=== PATIENT | male | born 1985 | race Caucasian/White ===

== ENCOUNTER 2020-06-11 18:58 | Emergency (ER) | payer BC ==
[~2020-06-11] VITALS: Ht 175.3 cm; Wt 61.2 kg
[2020-06-11 20:00] LABS: URINE BILIRUBIN NEGATIVE (Negative); URINE BLOOD NEGATIVE (Negative); URINE COLOR YELLOW; URINE GLUCOSE-RANDOM NEGATIVE (Negative); URINE KETONES NEGATIVE (Negative); URINE LEUKOCYTES NEGATIVE (Negative); URINE NITRITE NEGATIVE (Negative); URINE PROTEIN 2+ (Negative); URINE SPECIFIC GRAVITY >= 1.030 (1.005-1.030); URINE UROBILINOGEN 0.2 E.U./dl (0.2-1.0)
[2020-06-11 20:04] LABS: HEMATOCRIT 44.4 % (42.0-52.0); HEMOGLOBIN 15.4 gm/dL (14.0-18.0); MCH 32.1 pg (26.0-34.0); MCHC 34.8 g/dL (28.0-37.0); MCV 92.2 fL (80.0-100.0); MPV 7.8 fl. (7.2-11.1); RBC 4.82 mil/uL (4.50-6.00); RDW-CV 13.1 % (10.5-14.5); WBC 7.6 thou/uL (4.0-11.0)
[2020-06-11 20:05] LABS: URINE CLARITY HAZY
[2020-06-11 20:08] LABS: AMP/METHAMP POSITIVE (Negative); BARBITURATES Negative (Negative); BENZODIAZEPINES POSITIVE (Negative); COCAINE Negative (Negative); METHADONE Negative (Negative); OPIATES Negative (Negative); PCP Negative (Negative); THC Negative (Negative)
[2020-06-11 20:20] LABS: HYALINE CASTS 0-3 Few /LPF (None Seen); MUCUS 4-6 Moderate strn/LPF (None Seen); SQUAMOUS 4-10 Moderate /LPF (0-3)
[2020-06-11 20:21] LABS: CALCIUM OXALATE 0-3 Few /LPF (None Seen)
[2020-06-11 20:22] LABS: BACTERIA None Seen /HPF (None Seen); URINE RBC None Seen /HPF (0-2); URINE WBC None Seen /HPF (0-5)
[2020-06-11 20:37] LABS: ACETAMINOPHEN < 2 ug/mL (10-30); ALCOHOL < 10 mg/dL (<10); SALICYLATE < 2.8 mg/dL (2.8-20.0)
[2020-06-11 20:42] LABS: CALCIUM 8.8 mg/dL (8.5-10.1); CREATININE 0.9 mg/dL (0.6-1.3); POTASSIUM 4.2 mmol/L (3.5-5.1)
[2020-06-11 20:47] LABS: ALBUMIN 3.8 g/dL (3.4-5.0); TOTAL BILIRUBIN 0.6 mg/dL (<0.1-1.0); TOTAL PROTEIN 7.1 g/dL (6.4-8.2)
[2020-06-11] MEDS ORDERED: SEROQUEL300 MG PO (21:35)
[2020-06-11] MEDS ORDERED: IRON325 M1 PO (21:35)
[2020-06-11] MEDS ORDERED: VALIUM5 MG PO (21:35)
[2020-06-11] MEDS ORDERED: PROTONIX40 M4 PO (21:35)
[2020-06-11] MEDS ORDERED: ADZENYS XR-OD15.7 MG PO (21:39)
[2020-06-11] MEDS ORDERED: BUTRANS1 EACH INTRADERM (21:39)
[2020-06-11] MEDS ORDERED: ALLEGRA ALLERGY60 MG PO (21:39)
[2020-06-11] MEDS ORDERED: VITAMIN D (21:40)
[2020-06-11 23:14] VITALS: BP 115/73
== END 2020-06-11 23:14 | disposition home or self-care (01) ==
LOC: M.ERS 18:58
PROVIDERS: Personal Emergency Response Attendant
DX: F32.9 Major depressive disorder, single episode, unspecified (principal); Z88.2 Allergy status to sulfonamides; Z88.8 Allergy status to other drugs, medicaments and biological substances

== ENCOUNTER 2020-07-18 13:07 | Emergency (ER) | payer BC ==
[~2020-07-18] VITALS: Ht 175.3 cm; Wt 59.0 kg
--- NOTE | ~2020-07-18 | EMS ---
[facility] [address] [place] [address] EMS Patient Care Report Name: DONNIE CASTRO Room: [facility]#: [id number] Admission: 07/18/20 Attend Phys: Discharge: Date of : 85 Report #: [id number] THIS REPORT FOR: //name// Report Transmitted: 07/18/2020 17:15 EMS Care Summary [facility] [place] Incident [id number] @ 07/18/2020 12:35 Incident Location [address] [address] Patient DONNIE CASTRO Male, 34 Years 1985 Patient Address [address] [place] [address] Patient History Anxiety disorder, unspecified, Patient Allergies No known allergies, Patient Medications Oxygen, Chief Complaint Psych/Behavioral Crisis Disposition Transported No Lights/[place] Dispatch Reason Psychiatric Problem/Abnormal Behavior/Suicide Attempt Transported To [facility] Narrative Dispatched to address noted for an unknown psychiatric. [facility] en route at time noted. Arrived and found the patient walking out of the psychiatric office with staff. Patient had an oxygen concentrator on at 1 L/min. 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 Patient is new to the area. Patient stated to the staff there that he has last the will to live and did not want to be around. Patient stated he wanted to be transported to [facility] for care. patient is trying to get his behavioral issues taken care of by a doctor but cannot get an appointment until September. Patient was walked to ambulance and then buckled into stretcher by partner while I gathered information from staff and her phone number for the hospital to call. Once in ambulance, vitals where taken at time noted. Patient seemed to be frustrated but was calm and cooperative. While en route, vital where taken at time noted. No major events noted. Radio report given at time noted. Arrived and took patient to room. Patient was moved to bed and RN was given verbal report. RN signed for patient and patient signed for self. END REPORT EMT-P Austin Vallejo Initial Vitals @12:50SpO2: 100, @12:51SpO2: 99, @12:53SpO2: 100, @12:53SpO2: 100, @12:58SpO2: 99, @13:01SpO2: 99, @12:53P: 77,R: 18,BP: 166/103, @13:01P: 80,R: 18,BP: 157/105, @12:53GCS: 15, @13:01GCS: 15, @12:43 Assessments @12:43MENTAL:SKIN:HEENT:LUNG SOUNDS:ABDOMEN:PELVIS//GI:EXTREMITIES:PULSE:NEURO: Impression Mental disorder Procedures @12:43Other - Medication - 1.000 Liters per Minute (l/min [fluid]) - Nasal CannulaResponse: Unchanged Timeline 12:34,Call Received 12:34,Dispatch Notified 12:34,Psap Call 12:35,Dispatched 12:35,En Route 12:41,On Scene 12:43,[place] [address] EMS Patient Care Report Name: DONNIE CASTRO Room: [facility]#: [id number] Admission: 07/18/20 Attend Phys: Discharge: Date of : 85 Report #: [id number] 12:43,Other - Medication - 1.000 Liters per Minute (l/min [fluid]) - Nasal Cannula,Response: Unchanged 12:43,BP: / M,PULSE: ,RR: R,SPO2: Ox,ETCO2: ,BG: ,PAIN: ,GCS: , 12:50,BP: / M,PULSE: ,RR: R,SPO2: 100 Ox,ETCO2: ,BG: ,PAIN: ,GCS: , 12:51,BP: / M,PULSE: ,RR: R,SPO2: 99 Ox,ETCO2: ,BG: ,PAIN: ,GCS: , 12:51,Depart Scene 12:53,BP: / M,PULSE: ,RR: R,SPO2: 100 Ox,ETCO2: ,BG: ,PAIN: ,GCS: , 12:53,BP: / M,PULSE: ,RR: R,SPO2: 100 Ox,ETCO2: ,BG: ,PAIN: ,GCS: , 12:53,BP: 166/103 M,PULSE: 77,RR: 18 R,SPO2: Ox,ETCO2: ,BG: ,PAIN: ,GCS: , 12:53,BP: / M,PULSE: ,RR: R,SPO2: Ox,ETCO2: ,BG: ,PAIN: ,GCS: 15, 12:58,BP: / M,PULSE: ,RR: R,SPO2: 99 Ox,ETCO2: ,BG: ,PAIN: ,GCS: , 13:01,BP: / M,PULSE: ,RR: R,SPO2: 99 Ox,ETCO2: ,BG: ,PAIN: ,GCS: , 13:01,BP: 157/105 M,PULSE: 80,RR: 18 R,SPO2: Ox,ETCO2: ,BG: ,PAIN: ,GCS: , 13:01,BP: / M,PULSE: ,RR: R,SPO2: Ox,ETCO2: ,BG: ,PAIN: ,GCS: 15, 13:04,At Destination 13:15,Call Closed Disclaimer v1.1 Copyright 2020 [employer] This EMS Care Summary contains data elements from the applicable legal record (which may be displayed differently). It is designed to provide pertinent information for the following purposes: continuity of care, clinical quality, and state data reporting. The complete legal record is available to ED staff and administrators of the receiving hospital in [employer]'s Patient Tracker. All data is provided "as is."
[~2020-07-18 13:07] MED LIST: ADZENYS XR-OD15.7 MG PO; ALLEGRA ALLERGY60 MG PO; BUTRANS1 EACH INTRADERM; IRON325 M1 PO; PROTONIX40 M4 PO; SEROQUEL300 MG PO; VALIUM5 MG PO; VITAMIN D
[2020-07-18] MEDS ORDERED: [UNRECOGNIZED DRUG - OTHER] PO (13:22)
[2020-07-18] MEDS ORDERED: METHYLFOLATE (13:30)
[2020-07-18] MEDS ORDERED: PROTONIX40 M3 PO (13:31)
[2020-07-18] MEDS ORDERED: BROVANA15 MCG/2 M INH (13:31)
[2020-07-18] MEDS ORDERED: DEXEDRINE15 MG PO (13:31)
[2020-07-18 13:38] LABS: URINE BILIRUBIN NEGATIVE (Negative); URINE BLOOD NEGATIVE (Negative); URINE CLARITY CLEAR; URINE COLOR YELLOW; URINE GLUCOSE-RANDOM NEGATIVE (Negative); URINE KETONES NEGATIVE (Negative); URINE LEUKOCYTES-REFLEX NEGATIVE (Negative); URINE NITRITE-REFLEX NEGATIVE (Negative); URINE PROTEIN NEGATIVE (Negative); URINE UROBILINOGEN 0.2 E.U./dl (0.2-1.0)
[2020-07-18 13:46] LABS: AMP/METHAMP Negative (Negative); BARBITURATES Negative (Negative); BENZODIAZEPINES POSITIVE (Negative); COCAINE Negative (Negative); METHADONE Negative (Negative); OPIATES Negative (Negative); PCP Negative (Negative); THC Negative (Negative)
[2020-07-18 14:01] LABS: ABSOLUTE BASOPHILS 0.1 thou/uL (0.0-0.2); ABSOLUTE EOSINOPHILS 0.2 thou/uL (0.0-0.7); ABSOLUTE LYMPHOCYTES 1.2 thou/uL (0.8-5.3); ABSOLUTE MONOCYTES 0.5 thou/uL (0.0-1.2); ABSOLUTE NEUTROPHILS 4.3 thou/uL (1.6-8.1); BASOPHILS 0.9 %; EOSINOPHILS 2.6 %; HEMATOCRIT 47.6 % (42.0-52.0); HEMOGLOBIN 16.4 gm/dL (14.0-18.0); LYMPHOCYTES 18.9 %; MCH 31.8 pg (26.0-34.0); MCHC 34.5 g/dL (28.0-37.0); MCV 92.3 fL (80.0-100.0); MONOCYTES 8.8 %; MPV 7.5 fl. (7.2-11.1); NUCLEATED RBCS 0 /100WBC; PLATELET COUNT* 252 thou/uL (150-400); POLYS 68.8 %; RBC 5.15 mil/uL (4.50-6.00); RDW-CV 12.9 % (10.5-14.5); WBC 6.2 thou/uL (4.0-11.0)
[2020-07-18 14:10] LABS: CALCIUM 9.3 mg/dL (8.5-10.1); CREATININE 0.8 mg/dL (0.6-1.3); POTASSIUM 3.9 mmol/L (3.5-5.1)
[2020-07-18 14:15] LABS: ACETAMINOPHEN < 2 ug/mL (10-30); ALBUMIN 3.9 g/dL (3.4-5.0); ALCOHOL < 10 mg/dL (<10); SALICYLATE < 2.8 mg/dL (2.8-20.0); TOTAL BILIRUBIN 0.7 mg/dL (<0.1-1.0); TOTAL PROTEIN 7.4 g/dL (6.4-8.2)
[2020-07-18 23:52] VITALS: BP 144/94
== END 2020-07-18 23:53 | disposition home or self-care (01) ==
LOC: M.ERS 13:07
PROVIDERS: Emergency Medicine Emergency Medical Services
DX: R45.851 Suicidal ideations (principal); J45.909 Unspecified asthma, uncomplicated; G43.909 Migraine, unspecified, not intractable, without status migrainosus; K21.9 Gastro-esophageal reflux disease without esophagitis; G47.30 Sleep apnea, unspecified; F90.9 Attention-deficit hyperactivity disorder, unspecified type; F32.9 Major depressive disorder, single episode, unspecified; M41.9 Scoliosis, unspecified; Z88.2 Allergy status to sulfonamides; Z88.8 Allergy status to other drugs, medicaments and biological substances; Z79.899 Other long term (current) drug therapy

== ENCOUNTER 2021-02-07 18:51 | Emergency (ER) | payer BC ==
[~2021-02-07] VITALS: Ht 175.3 cm; Wt 59.9 kg
[~2021-02-07 18:51] MED LIST changes: +BROVANA15 MCG/2 M INH; +DEXEDRINE15 MG PO; +METHYLFOLATE; +PROTONIX40 M3 PO; +[UNRECOGNIZED DRUG - OTHER] PO
[2021-02-07 19:40] LABS: ABSOLUTE BASOPHILS 0.1 thou/uL (0.0-0.2); ABSOLUTE EOSINOPHILS 0.1 thou/uL (0.0-0.7); ABSOLUTE LYMPHOCYTES 1.6 thou/uL (0.8-5.3); ABSOLUTE MONOCYTES 0.6 thou/uL (0.0-1.2); ABSOLUTE NEUTROPHILS 2.6 thou/uL (1.6-8.1); BASOPHILS 1.3 %; EOSINOPHILS 2.8 %; HEMATOCRIT 42.8 % (42.0-52.0); HEMOGLOBIN 15.1 gm/dL (14.0-18.0); LYMPHOCYTES 31.9 %; MCH 32.1 pg (26.0-34.0); MCHC 35.2 g/dL (28.0-37.0); MCV 91.2 fL (80.0-100.0); MONOCYTES 11.5 %; MPV 7.7 fl. (7.2-11.1); NUCLEATED RBCS 0 /100WBC; PLATELET COUNT* 235 thou/uL (150-400); POLYS 52.5 %; RBC 4.69 mil/uL (4.50-6.00); RDW-CV 12.7 % (10.5-14.5); WBC 4.9 thou/uL (4.0-11.0)
[2021-02-07 19:42] LABS: CALCIUM 9.3 mg/dL (8.5-10.1); CREATININE 0.9 mg/dL (0.6-1.3); MAGNESIUM 1.9 mg/dL (1.8-2.4); POTASSIUM 3.9 mmol/L (3.5-5.1)
[2021-02-07 20:14] VITALS: BP 127/94
--- NOTE | 2021-02-08 10:57 | EKG ---
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[place] : 1985 Requested By: Jenelle Edwards Order Number: [id number] MD: Sachin Hackett Measurements Intervals [place] Rate: 83 P: 76 [place]: 111 QRS: 75 QRSD: 91 T: 70 QT: 358 QTc: 421 Interpretive Statements Sinus rhythm Borderline short [place] interval Probable left atrial enlargement Left ventricular hypertrophy ST elev, probable normal early repol pattern No previous ECG available for comparison Electronically Signed On 02-08-2021 10:57:33 CDT by Sachin Hackett [email or web address] <ELECTRONICALLY SIGNED> By: Sachin Hackett MD, [facility] 02/08/21 1057 190 1901 Sachin Hackett MD, [facility] /EPI
== END 2021-02-07 20:15 | disposition home or self-care (01) ==
LOC: M.ERS 18:51
PROVIDERS: Emergency Medicine
DX: F41.9 Anxiety disorder, unspecified (principal); J45.909 Unspecified asthma, uncomplicated; G43.909 Migraine, unspecified, not intractable, without status migrainosus; F90.9 Attention-deficit hyperactivity disorder, unspecified type; K21.9 Gastro-esophageal reflux disease without esophagitis; F32.9 Major depressive disorder, single episode, unspecified; Z79.899 Other long term (current) drug therapy; Z88.2 Allergy status to sulfonamides; Z88.8 Allergy status to other drugs, medicaments and biological substances; Z88.1 Allergy status to other antibiotic agents

== ENCOUNTER 2021-03-19 17:43 | Emergency (ER) | payer BC ==
[~2021-03-19] VITALS: Ht 175.3 cm; Wt 60.3 kg
[2021-03-19 18:52] LABS: ABSOLUTE BASOPHILS 0.1 thou/uL (0.0-0.2); ABSOLUTE EOSINOPHILS 0.1 thou/uL (0.0-0.7); ABSOLUTE MONOCYTES 0.7 thou/uL (0.0-1.2); ABSOLUTE NEUTROPHILS 9.7 thou/uL (1.6-8.1); BASOPHILS 0.6 %; HEMATOCRIT 46.3 % (42.0-52.0); HEMOGLOBIN 15.9 gm/dL (14.0-18.0); LYMPHOCYTES 8.4 %; MCH 31.6 pg (26.0-34.0); MCHC 34.2 g/dL (28.0-37.0); MCV 92.4 fL (80.0-100.0); MONOCYTES 6.4 %; MPV 8.1 fl. (7.2-11.1); NUCLEATED RBCS 0 /100WBC; PLATELET COUNT* 233 thou/uL (150-400); POLYS 83.6 %; RBC 5.01 mil/uL (4.50-6.00); RDW-CV 12.6 % (10.5-14.5); WBC 11.6 thou/uL (4.0-11.0)
[2021-03-19 19:10] LABS: CALCIUM 8.6 mg/dL (8.5-10.1); CREATININE 0.9 mg/dL (0.6-1.3); POTASSIUM 3.9 mmol/L (3.5-5.1)
[2021-03-19 19:19] LABS: TOTAL BILIRUBIN 0.8 mg/dL (<0.1-1.0); TOTAL PROTEIN 7.6 g/dL (6.4-8.2)
[2021-03-19 19:31] LABS: INFLUENZA A ANTIGEN Negative (Negative); INFLUENZA B ANTIGEN Negative (Negative)
[2021-03-19 20:26] LABS: BE -0.4 mmol/L (-2 to +3); PCO2 VENOUS 52.1 mmHg (41.0-51.0); PO2 VENOUS 72.8 mmHg (35.0-45.0)
[2021-03-19] MEDS ORDERED: ALBUTEROL2.5 MG/31 INH (21:59)
[2021-03-19] MEDS ORDERED: VENTOLIN HFA 1818 GM INH (21:59)
[2021-03-19] MEDS ORDERED: DOXYCYCLINE 10100 MG PO (21:59)
[2021-03-19 22:55] VITALS: BP 125/75
--- NOTE | 2021-03-20 06:18 | EKG ---
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[place] : 1985 Requested By: Michelle Samaniego Order Number: [id number] MD: Nathan Mullins Measurements Intervals [place] Rate: 83 P: 57 [place]: 120 QRS: 70 QRSD: 98 T: 71 QT: 384 QTc: 452 Interpretive Statements Sinus rhythm Incomplete right bundle branch block Left ventricular hypertrophy, by voltage ST elev, probable normal early repol pattern Compared to ECG 02/07/2021 19:01:36 Incomplete right bundle branch block now present Electronically Signed On 03-20-2021 6:18:02 CDT by Nathan Mullins [email or web address] <ELECTRONICALLY SIGNED> By: Nathan Mullins MD, FACC 03/20/21 0618 42 42 Nathan Mullins MD, FACC /EPI
== END 2021-03-19 22:55 | disposition home or self-care (01) ==
LOC: M.ERS 17:43
PROVIDERS: Nurse Practitioner Family
DX: J18.9 Pneumonia, unspecified organism (principal); Z20.822 Contact with and (suspected) exposure to COVID-19; J45.909 Unspecified asthma, uncomplicated; G43.909 Migraine, unspecified, not intractable, without status migrainosus; F90.9 Attention-deficit hyperactivity disorder, unspecified type; K21.9 Gastro-esophageal reflux disease without esophagitis; F32.9 Major depressive disorder, single episode, unspecified; F41.9 Anxiety disorder, unspecified; Z79.899 Other long term (current) drug therapy; Z88.2 Allergy status to sulfonamides; Z88.6 Allergy status to analgesic agent

== ENCOUNTER → 2021-07-22 | Emergency (ER) | payer OTHER ==
[~2021-07-22] VITALS: Ht 172.7 cm; Wt 60.3 kg
[~2021-07-22] MED LIST changes: +ALBUTEROL2.5 MG/31 INH; +DOXYCYCLINE 10100 MG PO; +VALIUM10 MG PO; +VENTOLIN HFA 1818 GM INH
[2021-07-22 21:10] VITALS: BP 136/97
[2021-07-22 21:44] LABS: ABSOLUTE BASOPHILS 0.1 thou/uL (0.0-0.2); ABSOLUTE EOSINOPHILS 0.1 thou/uL (0.0-0.7); ABSOLUTE LYMPHOCYTES 1.5 thou/uL (0.8-5.3); ABSOLUTE MONOCYTES 0.4 thou/uL (0.0-1.2); ABSOLUTE NEUTROPHILS 3.7 thou/uL (1.6-8.1); BASOPHILS 1.3 %; EOSINOPHILS 2.1 %; HEMATOCRIT 51.6 % (42.0-52.0); HEMOGLOBIN 17.9 gm/dL (14.0-18.0); LYMPHOCYTES 25.7 %; MCH 32.1 pg (26.0-34.0); MCHC 34.6 g/dL (28.0-37.0); MCV 92.7 fL (80.0-100.0); MONOCYTES 7.5 %; MPV 7.8 fl. (7.2-11.1); NUCLEATED RBCS 0 /100WBC; PLATELET COUNT* 325 thou/uL (150-400); POLYS 63.4 %; RBC 5.56 mil/uL (4.50-6.00); RDW-CV 12.9 % (10.5-14.5); WBC 5.8 thou/uL (4.0-11.0)
[2021-07-22 21:46] LABS: URINE BILIRUBIN NEGATIVE (Negative); URINE BLOOD NEGATIVE (Negative); URINE CLARITY CLEAR; URINE COLOR YELLOW; URINE GLUCOSE-RANDOM NEGATIVE (Negative); URINE KETONES NEGATIVE (Negative); URINE LEUKOCYTES-REFLEX NEGATIVE (Negative); URINE NITRITE-REFLEX NEGATIVE (Negative); URINE PROTEIN NEGATIVE (Negative); URINE SPECIFIC GRAVITY >= 1.030 (1.005-1.030); URINE UROBILINOGEN 0.2 E.U./dl (0.2-1.0)
[2021-07-22 21:49] LABS: CALCIUM 9.3 mg/dL (8.5-10.1); CREATININE 0.9 mg/dL (0.6-1.3); POTASSIUM 4.2 mmol/L (3.5-5.1)
[2021-07-22 21:59] LABS: ALBUMIN 4.6 g/dL (3.4-5.0); TOTAL BILIRUBIN 0.5 mg/dL (<0.1-1.0); TOTAL PROTEIN 8.9 g/dL (6.4-8.2)
[2021-07-23 03:18] LABS: AMP/METHAMP POSITIVE (Negative)
[2021-07-23 03:19] LABS: BARBITURATES Negative (Negative); BENZODIAZEPINES POSITIVE (Negative); COCAINE Negative (Negative); OPIATES Negative (Negative); PCP Negative (Negative); THC Negative (Negative)
[2021-07-23 03:20] LABS: ACETAMINOPHEN < 2 ug/mL (10-30); ALCOHOL < 10 mg/dL (<10); SALICYLATE 0.5 mg/dL (2.8-20.0)
== END ==
LOC: M.ERS 21:00
PROVIDERS: Emergency Medicine Emergency Medical Services
DX: F32.9 Major depressive disorder, single episode, unspecified (principal); S41.111A Laceration without foreign body of right upper arm, initial encounter; S81.811A Laceration without foreign body, right lower leg, initial encounter; R10.9 Unspecified abdominal pain; J45.909 Unspecified asthma, uncomplicated; G43.909 Migraine, unspecified, not intractable, without status migrainosus; K21.9 Gastro-esophageal reflux disease without esophagitis; F41.9 Anxiety disorder, unspecified; Z79.51 Long term (current) use of inhaled steroids; Z79.899 Other long term (current) drug therapy; Z88.1 Allergy status to other antibiotic agents; Z88.2 Allergy status to sulfonamides; Z88.5 Allergy status to narcotic agent; Z88.8 Allergy status to other drugs, medicaments and biological substances; X78.9XXA Intentional self-harm by unspecified sharp object, initial encounter; Y93.89 Activity, other specified; Y92.89 Other specified places as the place of occurrence of the external cause; Y99.8 Other external cause status